=== PATIENT | female | born 1965 | race African-American/Black ===

== ENCOUNTER 2019-07-20 12:19 | Emergency (ER) | payer OTHER ==
[2019-07-20] MEDS ORDERED: Norepinephrine 4 MG/4 ML VIAL ONE (12:25)
[2019-07-20] MEDS ORDERED: Albuterol Sulfate 2.5 mg/0.5 ml Neb ONE (12:27)
[2019-07-20] MEDS ORDERED: methylPREDNISolone Sod Succ/PF 125 MG/2 ML VIAL ONE (12:27)
[2019-07-20 12:39] LABS: Hemoglobin 11.3 g/dL (12.0-16.0); Mean Corpuscular HGB CONC 30.1 g/dL (32.0-36.0); Mean Corpuscular Hemoglobin 31.4 pg (27.0-31.0); Mean Platelet Volume 6.8 fL (7.4-10.4); Platelet Count 272 thou/uL (130-400); RBC Distribution Width 15.7 % (11.5-14.5); White Blood Cell (WBC) Count 12.8 thou/uL (4.8-10.8)
[2019-07-20 12:42] LABS: INR-International Normal Ratio 1.5
[2019-07-20 12:43] LABS: PTT 42.1 SEC (22.9-36.1)
[2019-07-20 12:52] LABS: ALT (SGPT) 2837 U/L (8-55); AST (SGOT) 2573 U/L (5-34); Albumin 2.9 g/dL (3.5-5.0); Alkaline Phosphatase 104 U/L (40-110); Anion Gap 24 mmol/L (10-20); BUN (Urea Nitrogen) 15 mg/dL (9.8-20.1); Bilirubin, Total 0.3 mg/dL (0.2-1.2); CK (CPK) 38 U/L (29-168); Calc. Creatinine Clearance 0 mL/min (70-130); Calcium 8.3 mg/dL (7.8-10.44); Carbon Dioxide 17 mmol/L (22-29); Chloride 100 mmol/L (98-107); Estimated GFR-MDRD Greater than 90; Globulin 2.7 g/dL (2.4-3.5); Glucose 206 mg/dL (70-105); Protein, Total 5.6 g/dL (6.0-8.3); Sodium 134 mmol/L (136-145)
[2019-07-20 12:53] LABS: Potassium 6.9 mmol/L (3.5-5.1)
[2019-07-20] MEDS ORDERED: Insulin Regular 300 UNITS/3 ML VIAL ONE (12:55)
[2019-07-20 12:58] LABS: Band 11 % (5-11); Eosinophils 3 % (0-10); Lymphocytes 29 % (21-51); MDiff Complete? YES; Monocytes 3 % (0-10); Neutrophil 54 % (42-75)
[2019-07-20] MEDS ORDERED: cefTRIAXone\\ROCEPHIN 2 GM VIAL ONE (13:00)
[2019-07-20 13:16] LABS: Bilirubin Negative (Negative); Blood, Urine Small (Negative); Glucose, Urine (Dipstick) Negative (Negative); Leukocyte Trace (Negative); Nitrite Negative (Negative); Protein, Urine (Dipstick) > or equal to 300 mg/dL (Neg-Trace); Urobilinogen 0.2 mg/dL (Less than 2)
[2019-07-20 13:24] LABS: Clarity Hazy (Clear); Renal Epithelial 0-3 HPF (None Seen); Squamous Epithelial 0-3 HPF (0-3)
[2019-07-20 13:25] LABS: Bacteria/HPF Rare-Few HPF (None Seen)
--- NOTE | 2019-07-20 13:38 | RAD ---
PORTABLE CHEST: DATE: 07/20/2019. FINDINGS: An AP portable film at 1248 is compared with a 07/15/2019 study from [facility]. The patient is turned slightly, but even allowing for this, there is increased opacity in the left ch est suggesting fluid, infiltrate, or both. The heart is moderately enlarged as before. The right gi ng is clear. A tracheostomy tube remains in place. IMPRESSION: Increasing opacification in the left hemithorax. Most likely some combination of infiltrate, fluid, or both. POS: HOME
[2019-07-20] MEDS ORDERED: EPINEPHrine 1 MG/10 ML Abboject SYRINGE ONE (17:01)
[2019-07-20] MEDS ORDERED: Succinylcholine Chloride 200 MG/10 ML VIAL ONE (17:01)
[2019-07-20] MEDS ORDERED: Dextrose 50% Abboject 50 ML SYRINGE ONE (17:01)
== END 2019-07-20 13:40 | disposition short-term general hospital (02) ==
LOC: BURERS 12:19
DX: I46.9 Cardiac arrest, cause unspecified (principal); A41.9 Sepsis, unspecified organism; J18.9 Pneumonia, unspecified organism
CPT/HCPCS: 31500; 36415; 51702; 71045; 80053; 81003; 81015; 82550; 83605; 83690; 84484; 85025; 85610; 85730; 92950; 93005; 96365; 96375; 96376; J0171; J0330; J0696; J1815; J2930; J7070; J7611